=== PATIENT | female | born 1995 | race Caucasian/White ===

== ENCOUNTER 2018-09-13 12:08 | Emergency (ER) | payer OTHER ==
[2018-09-13 12:13] VITALS: BP 112/73; PULSE 92; TEMP 99.2; BMI 23.2
--- NOTE | 2018-09-13 13:39 | PDOC ---
History of Present Illness - General Chief Complaint: Vomiting/Diarrhea Stated Complaint: VOMITING/DIARRHEA Time Seen by Provider: 09/13/18 12:42 History Source: Patient Exam Limitations: No Limitations - History of Present Illness Initial Comments: 09/13/18 13:09 She came for evaluation of generalized body aches, fevers and chills, runny nose and sneezing, and nausea and vomiting 2 yesterday. States used ibuprofen and TheraFlu with some resolved. Works at a [employer]/multiple people have been L recently. Timing/Duration: unsure, 24 hours Severity: mild, moderate Modifying Factors: improves with: medication Associated Symptoms: reports: cough, fever/chills, headaches Past History - Past Medical History Allergies/Adverse Reactions: Allergies Allergy/AdvReac Type Severity Reaction Status Date / Time No Known Allergies Allergy Verified 09/13/18 12:09 Home Medications: Ambulatory Orders Oseltamivir Phosphate [Tamiflu -] 75 mg PO BID #10 capsule 09/13/18 Asthma: No Cancer: No Cardiac Disorders: No COPD: No Diabetes: No HTN: No Seizures: No Thyroid Disease: No - Immunization History Immunization Up to Date: Yes - Suicide/Smoking/Psychosocial Hx Smoking History: Never smoked Have you smoked in the past 12 months: No Hx Alcohol Use: No Drug/Substance Use Hx: No Substance Use Type: None Hx Substance Use Treatment: No Review of Systems - Review of Systems Able to Perform ROS?: Yes Is the patient limited Moroccan proficient: Yes Constitutional: Yes: Symptoms Reported, See HPI, Chills, Fever, Malaise HEENTM: Yes: Symptoms Reported, See HPI, Nose Congestion. No: Eye Pain Respiratory: Yes: Symptoms reported, See HPI, Cough. No: Wheezing Musculoskeletal: Yes: Symptoms Reported Integumentary: No: Symptoms Reported Neurological: Yes: Symptoms reported, See HPI, Headache All Other Systems: Reviewed and Negative *Physical Exam - Vital Signs Last Vital Signs Temp Pulse Resp BP Pulse Ox 99.2 F 92 H 16 112/73 99 09/13/18 12:10 09/13/18 12:10 09/13/18 12:10 09/13/18 12:10 09/13/18 12:10 - Physical Exam General Appearance: Yes: Nourished, Appropriately Dressed, Apparent Distress, Mild Distress, Moderate Distress HEENT: positive: JERMAINE (congested but landmarks easily visualized), TMs Normal, Pharyngeal Erythema, Nasal Congestion, Rhinorrhea. negative: Normal ENT Inspection, Pharynx Normal, Tonsillar Exudate Neck: positive: Supple, Lymphadenopathy (R), Lymphadenopathy (L). negative: Tender Respiratory/Chest: positive: Lungs Clear (coarse but clear). negative: Normal Breath Sounds, Wheezing Cardiovascular: positive: Regular Rhythm Gastrointestinal/Abdominal: positive: Normal Bowel Sounds, Soft. 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 intact, Fully Oriented, Alert, Normal Mood/ Affect, Normal Response, Motor Strength 5/5 Moderate Sedation - Procedure Monitoring Vital Signs: Procedure Monitoring Vital Signs Temperature 99.2 F 09/13/18 12:10 Pulse Rate 92 H 09/13/18 12:10 Respiratory Rate 16 09/13/18 12:10 Blood Pressure 112/73 09/13/18 12:10 O2 Sat by Pulse Oximetry (%) 99 09/13/18 12:10 *DC/Admit/Observation/Transfer Diagnosis at time of Disposition: Influenza A - Discharge Dispostion Disposition: HOME Condition at time of disposition: Stable Decision to Admit order: No - Prescriptions Prescriptions: Oseltamivir Phosphate [Tamiflu -] 75 mg PO BID #10 capsule - Referrals - Patient Instructions Printed Discharge Instructions: DI for Influenza -- Adult Additional Instructions: Rest, drink lots of fluids: Teas, water, soups, Pedialyte Saltwater gargles Steamy showers/seem to face break up mucus Old-fashioned treatments help! Avoid contact with others until fevers and cough resolved as this is very contagious Lots of handwashing and good hygiene Continue [id number] medications for symptomatic relief Tylenol or Motrin for fever and pain Take all of Tamiflu as directed: 1 tab every 12 hours for 5 days Followup with private physician in one to 2 days as needed or if worsening Return to emergency department for worsened symptoms, fevers, dehydration Influenza takes between 5 and 7 days for resolution To not participate in any activity, work, or school until fevers and cough are gone for at least one day - Post Discharge Activity Forms/Work/School Notes: Back to Work
== END 2018-09-13 14:10 | disposition home or self-care (01) ==
LOC: JERFT 12:08
DX: J09.X2 Influenza due to identified novel influenza A virus with other respiratory manifestations (principal)
CPT/HCPCS: 87804; 99281-25